=== PATIENT | female | born 1960 | race Caucasian/White ===

== ENCOUNTER 2021-06-07 05:21 | Emergency (ER) | payer OTHER, SELFPAY ==
--- NOTE | ~2021-06-07 | XR_ITS ---
EXAMINATION: XR lumbar spine 2-3V DATE: 06/07/2021 06:20 INDICATION: Low back pain TECHNIQUE: Anteroposterior and lateral views of the lumbar spine, and cone-down lateral view of the l umbosacral junction were obtained. COMPARISON: 05/24/2013 FINDINGS: There is no fracture. The vertebral body heights and alignment are normal. There is moderat e loss of intervertebral disc space height at L4-5 and L5-S1. Small degenerative osteophytes project from the anterior endplates of multiple vertebral bodies. Moderate facet osteoarthritis is present in the lower lumbar spine. A right pelvic calcification has the appearance of a uterine fibroid. IMPRESSION: 1. Moderate lumbar spondylosis without acute findings or significant interval change. Reviewed, dictated and finalized at location A. IMPRESSION: 1. Moderate lumbar spondylosis without acute findings or significant interval barbara sawyer
[2021-06-07 05:26] VITALS: BP 144/77; PULSE 66; RESP 18; TEMP 36.4; O2SAT 97
--- NOTE | 2021-06-07 05:35 | ED.GENADULT ---
HPI - General Adult General Chief complaint: Back Pain/Injury Stated complaint: Back injury at work Time Seen by Provider: 06/07/21 05:31 History of Present Illness HPI narrative: Patient is a 60-year-old female presents the emergency department with chief complaint of low back pain. The patient reports she works at [employer] and was moving some boxes of deli meat that were stacked in leaning fashion by her colleagues. Patient states that as she was attempting to move them the stack of boxes appeared to start to fall and the patient moved and twisted her back as she was trying to avoid the moving pile. Patient reports that the object did not fall but she felt a pulling sensation in her left low back the patient states has had no bowel or bladder dysfunction denies foot drop denies any paresthesias. Related Data Allergies Allergy/AdvReac Type Severity Reaction Status Date / Time No Known Allergies Allergy Unknown Verified 07/23/19 08:06 Review of Systems Review of Systems: A 10 system review of systems was completed on the patient and is negative except for what is stated in the HPI. Nursing and ancillary documentation was reviewed. Exam Narrative: GENERAL: Well-appearing, well-nourished, and in no acute distress. HEAD: Normocephalic, atraumatic. EYES: PERRLA and EOMI. ENT: Nares clear, no rhinorrhea or epistaxis. Mucous membranes moist. NECK: Supple. CHEST: Clear to auscultation. No respiratory distress. HEART: Regular rate and rhythm. No murmur heard. Normal peripheral pulses. ABDOMEN: Soft, nontender, nondistended, normal active bowel sounds. EXTREMITIES: Normal range of motion. No edema. Back: There is tenderness to palpation of the paraspinous muscles of the lumbar region on the left side SKIN: Warm, dry, no rash. NEURO: No focal deficits. Alert and oriented x3. PSYCH: Normal mood and affect. Course Vital Signs Vital signs: Vital Signs Temperature 36.4 C L 06/07/21 05:26 Pulse Rate 66 06/07/21 05:26 Respiratory Rate 18 06/07/21 05:26 Blood Pressure 144/77 H 06/07/21 05:26 Pulse Oximetry 97 06/07/21 05:26 Temperature 36.4 C L 06/07/21 05:26 Pulse Rate 66 06/07/21 05:26 Respiratory Rate 18 06/07/21 05:26 Blood Pressure 144/77 H 06/07/21 05:26 Pulse Oximetry 97 06/07/21 05:26 Medical Decision Making Vital Signs Vital Signs: Vital Signs Temperature 36.4 C L 06/07/21 05:26 Pulse Rate 66 06/07/21 05:26 Respiratory Rate 18 06/07/21 05:26 Blood Pressure 144/77 H 06/07/21 05:26 Pulse Oximetry 97 06/07/21 05:26 Temperature 36.4 C L 06/07/21 05:26 Pulse Rate 66 06/07/21 05:26 Respiratory Rate 18 06/07/21 05:26 Blood Pressure 144/77 H 06/07/21 05:26 Pulse Oximetry 97 06/07/21 05:26 Discharge Plan Discharge Clinical Impression: Strain of lumbar region Qualifiers: Encounter type: initial encounter Qualified Code(s): S39.012A - Strain of muscle, fascia and tendon of lower back, initial encounter Patient Disposition: Home, Self-Care Condition: Stable Instructions: Antibiotic Form, Low Back Strain (ED), Acute Low Back Pain (ED) Prescriptions: New cyclobenzaprine 10 mg tablet 10 mg PO TID PRN (Reason: muscle spasm) Qty: 21 RF: 0 ibuprofen 800 mg tablet 800 mg PO TID PRN (Reason: pain) Qty: 30 RF: 0 Follow-up/Referrals: Karly,Praful Griffiths MD [Primary Care Provider] - Time of Disposition: 06:22
[2021-06-07] MEDS: CYCLOBENZAPRINE HCL 10 MG TABLET PO (05:46)
[2021-06-07] MEDS: IBUPROFEN 400 MG TABLET 800 MG PO (05:47)
[2021-06-07 06:49] VITALS: BP 129/85; PULSE 67; RESP 17; O2SAT 99
== END 2021-06-07 06:52 | disposition home or self-care (01) ==
PROVIDERS: Emergency Provider Emergency Medicine; PCP Internal Medicine
DX: S39.012A Strain of muscle, fascia and tendon of lower back, initial encounter (principal); X50.1XXA Overexertion from prolonged static or awkward postures, initial encounter; Y99.0 Civilian activity done for income or pay
CPT/HCPCS: 72100; 99283; A9270

== ENCOUNTER 2022-11-26 14:34 | Emergency (ER) | payer OTHER, SELFPAY ==
--- NOTE | ~2022-11-26 | XR_ITS ---
EXAMINATION: [id number] DATE: 11/26/2022 15:21 INDICATION: Anterolateral left lower rib pain after pushing van door closed. TECHNIQUE: A frontal inspiratory view of the chest and 3 views of the left ribs were obtained. COMPARISON: None FINDINGS: No rib fractures identified. A few bilateral small calcified pulmonary nodules and calcified bilatera l hilar lymph nodes consistent with old granulomatous disease. No other airspace opacities, pulmonary edema, pleural effusion or pneumothorax. Cardiomediastinal silhouette is normal. Slight 3 component curvature of the thoracic and lumbar spine with moderate spondylosis. Cholecystectomy clips in right upper quadrant. IMPRESSION: 1. No rib fracture or acute cardiopulmonary disease. Reviewed, dictated and finalized at location A. NESE PROFESSOR
[2022-11-26 15:02] VITALS: BP 118/73; PULSE 66; RESP 18; TEMP 36.2; O2SAT 98
--- NOTE | 2022-11-26 15:37 | ED.GENADULT ---
HPI - General Adult General Chief complaint: Unspecified Stated complaint: rt injury Time Seen by Provider: 11/26/22 15:43 Source: patient, RN notes reviewed and old records reviewed Mode of arrival: ambulatory Limitations: no limitations History of Present Illness HPI narrative: 62-year-old female presents to the [facility] with complaints of left lower anterior rib pain after trying to close her van door. patient states that she heard a pop in this concern for a rib fracture. No bruising or swelling noted. Tenderness to palpation to the left lower 2 ribs. Happened just prior to arrival. No treatment prior to arrival Related Data Home Medications Medication Instructions Recorded Confirmed famotidine 20 mg tablet mg 11/26/22 metoprolol succinate 25 mg mg PO 11/26/22 tablet,extended release 24 hr nabumetone 500 mg tablet mg 11/26/22 naltrexone 50 mg tablet mg 11/26/22 norethindrone acetate 5 mg tablet mg 11/26/22 Allergies Allergy/AdvReac Type Severity Reaction Status Date / Time No Known Allergies Allergy Unknown Verified 07/23/19 08:06 Review of Systems Review of Systems: All systems reviewed & are unremarkable except as noted in HPI and below Constitutional: Constitutional: Reports no additional constitutional complaints Eyes: Eyes: Reports no additional eye complaints ENT: Reports system reviewed and no additional complaints, except as documented Cardiovascular: Cardiovascular: Reports no additional cardiovascular complaints, Denies chest pain and Denies dyspnea Respiratory: Respiratory: Reports no additional respiratory complaints, Denies chest congestion, Denies cough and Denies dyspnea Gastrointestinal: Gastrointestinal: Reports no additional gastrointestinal complaints, Denies abdominal pain, Denies nausea and Denies vomiting Musculoskeletal: Musculoskeletal: Reports no additional musculoskeletal complaints Comments: left lower rib pain anterior Integumentary/Breasts: Skin/Breast: Reports system reviewed and no additional complaints, except as docu Neurologic: Reports system reviewed and no additional complaints, except as documented Psychiatric: Psychiatric: Reports no additional psychiatric complaints Allergic/Immunologic: Allergic/Immunologic: Reports no additional allergic/immunologic complaints PMFSH Comments At the time of my signature, I reviewed and agree with the nursing past medical, surgical, social, and family history. There is no relevant family history pertinent to the patient complaint. Exam Const: General: cooperative, healthy appearing, comfortable, no acute distress, well developed, alert and well nourished Nutritional Appearance: well nourished Orientation/consciousness: patient oriented x3 Limitations: no limitations HENMT: Head: normal to inspection Ears: hearing grossly normal bilaterally and external ears normal Face/Nose/Sinus: Normal external nose present, Normal nares present, Normal nasal mucous membranes and turbinates present and normal facial exam Face and sinus: normal facial exam Mouth: Yes Normal oral and palatal mucosa present, Yes lip normal and Yes moist mucous membranes Throat: posterior oropharynx normal and uvula midline Eyes: General: appearance normal, both eyes and all related structures Alignment and Position: alignment normal Periorbital: periorbital findings normal Conjunctivae: conjunctivae normal Pupils: Equal, round and reactive pupils present EOM: EOMs intact bilaterally Neck: Neck: normal visual inspection, full ROM, no lymphadenopathy and no meningeal signs Chest: Chest palpation & inspection: tenderness Chest/axillae images: 1. left lower 2 ribs tender to palpation without erythema, rash, ecchymosis or swelling Resp: Effort & Inspection: normal respiratory effort and able to speak in complete sentences Auscultation: clear to auscultation bilaterally, no crackles, no rales, no rhonchi and no wheezes Cardio: Rat
== END 2022-11-26 15:58 | disposition home or self-care (01) ==
PROVIDERS: Emergency Provider Nurse Practitioner; PCP Physician Assistant
DX: S20.212A Contusion of left front wall of thorax, initial encounter (principal); X50.0XXA Overexertion from strenuous movement or load, initial encounter; K21.9 Gastro-esophageal reflux disease without esophagitis
CPT/HCPCS: 71101; 99213; G0463

== ENCOUNTER 2024-03-14 13:04 | Emergency (ER) | payer OTHER, SELFPAY ==
--- NOTE | ~2024-03-14 | XR_ITS ---
XR foot RT min 3V DATE: 03/14/2024 13:27 INDICATION: Injury one month ago. Continued swelling and pain TECHNIQUE: 4 views COMPARISON: None FINDINGS: There is mild osteoarthritis at the first metatarsophalangeal joint. There is plantar calcaneal enthesopathy. No fracture, dislocation, periosteal reaction or bone destruction is detected. IMPRESSION: No fracture or dislocation Reviewed, dictated and finalized at location B. IMPRESSION: No fracture or dislocation
[2024-03-14 13:05] VITALS: BP 127/85; PULSE 81; RESP 18; TEMP 36.9; O2SAT 97
[2024-03-14 15:00] VITALS: BP 131/78; PULSE 72; RESP 14; O2SAT 100
--- NOTE | 2024-03-14 15:23 | ED.LOWEXIN ---
HPI - Extremity Injury (Lower) General Chief Complaint: Extremity Injury, Lower Stated Complaint: concerned right foot is broken Time Seen by Provider: 03/14/24 14:12 History of Present Illness HPI Narrative: 63-year-old female presents to the emergency room for evaluation of right foot pain. Patient states 2-3 months ago she kicked off the foot of her bed causing pain to her of her right 2nd toe. Patient states that she has had discomfort in the toe since the injury. States recently of the base of the toe developed swelling which is extended to the midfoot. Patient reports pain with ambulation. Has been taking ibuprofen with no relief of symptoms. Related Data Home Medications Medication Instructions Recorded Confirmed famotidine 20 mg tablet mg 11/26/22 metoprolol succinate 25 mg mg PO 11/26/22 tablet,extended release 24 hr nabumetone 500 mg tablet mg 11/26/22 naltrexone 50 mg tablet mg 11/26/22 norethindrone acetate 5 mg tablet mg 11/26/22 Allergies Allergy/AdvReac Type Severity Reaction Status Date / Time No Known Allergies Allergy Unknown Verified 07/23/19 08:06 Review of Systems Review of Systems: ROS unremarkable except for noted in HPI Exam Narrative: GENERAL: Well-appearing, well-nourished, no physical limitations, and in no acute distress. HEAD: Normocephalic, atraumatic. EYES: Conjunctivae normal, PERRLA and EOMI. CHEST: Clear to auscultation. No respiratory distress. No wheezes rales or rhonchi. HEART: Regular rate and rhythm. No murmur heard. Normal peripheral pulses. EXTREMITIES: Right foot: +TTP to MTP joint of 2nd toe with diffuse swelling. No ecchymosis or erythema noted SKIN: Warm, dry, no rash. No noted wounds NEURO: No focal deficits. Alert and oriented x3. MAEW. CN's II-XI intact bilaterally, normal gait PSYCH: Cooperative. Normal mood and affect. Course Vital Signs Vital signs: Vital Signs Temperature 36.9 C 03/14/24 13:05 Pulse Rate 81 03/14/24 13:05 Respiratory Rate 18 03/14/24 13:05 Blood Pressure 127/85 03/14/24 13:05 Pulse Oximetry 97 03/14/24 13:05 Oxygen Delivery Room Air 03/14/24 13:05 Temperature 36.9 C 03/14/24 13:05 Pulse Rate 81 03/14/24 13:05 Respiratory Rate 18 03/14/24 13:05 Blood Pressure 127/85 03/14/24 13:05 Pulse Oximetry 97 03/14/24 13:05 Oxygen Delivery Room Air 03/14/24 13:05 Discharge Plan Discharge Clinical Impression: Gout Patient Disposition: Home, Self-Care Condition: Stable Instructions: Antibiotic Form, Gout (ED) Prescriptions: New indomethacin 50 mg capsule 50 mg PO TID Qty: 18 0RF Rx Instructions: administer with food or milk No Action naltrexone 50 mg tablet famotidine 20 mg tablet norethindrone acetate 5 mg tablet metoprolol succinate 25 mg tablet extended release 24 hr PO nabumetone 500 mg tablet baclofen 10 mg tablet 10 mg PO TID PRN (Reason: muscle pain) Qty: 10 0RF ibuprofen 600 mg tablet 600 mg PO TID PRN (Reason: fever or pain) Qty: 30 0RF Follow-up/Referrals: Adrian,JESSICA Marcus [Primary Care Provider] - Time of Disposition: 15:23
[2024-03-14] MEDS: dexAMETHasone SOD PHOS INJ 10 MG/ML 1 ML VIAL IM (15:37)
[2024-03-14 15:42] VITALS: BP 127/80; PULSE 66; RESP 15; TEMP 36.8; O2SAT 100
== END 2024-03-14 15:43 | disposition home or self-care (01) ==
PROVIDERS: Emergency Provider Nurse Practitioner Family; PCP Physician Assistant
DX: M10.9 Gout, unspecified (principal)
CPT/HCPCS: 73630; 96372; 99283; J1100

== ENCOUNTER 2024-12-09 23:47 | Emergency (ER) | payer OTHER, SELFPAY ==
--- NOTE | ~2024-12-09 | XR_ITS ---
Clinical Indication: Chest pain PA and lateral views of the chest: Comparison: 03/21/2012 Findings: Small calcified right midlung granuloma present. Questionable focal hazy opacity right midl anil. Left lung clear. Cardiomediastinal silhouette is within normal limits. Bones and soft tissues a re unremarkable. Impression: Question of focal hazy opacity right midlung. Focal pneumonitis not excluded. Stable calcified right midlung granuloma. Reviewed, dictated and finalized at location . T PSYCHOLOGIST Impression: Question of focal hazy opacity right midlung. Focal pneumonitis not excluded. Stable calcified right midlung granuloma.
--- OUTSIDE RECORDS SUMMARY | 2024-12-09 23:49 | XMS_ITS | Patient Health Summary ---
Author Organization [facility] Address [address] [place] [address] Care Team Providers Care Reliability Technicians Name Role Phone Praful Brandt MD Primary Care Provider [phone] Praful Brandt MD Unavailable Note from [facility],non-owned Affiliates and Associated Physician Practices is amultiple site organization consisting of ambulatory clinics and hospital sitesin [place], [place], [place] and [place]. This disclosure is being madepursuant to the Care Everywhere program and may not contain all information available regarding this patient. Last updated 18.[facility] Allergies No known active allergies Medications * Be aware that medications may not be up to date on this document. Alwaysverify current medications with the patient. * meloxicam (MOBIC) 7.5 MG tablet(Started 10/20/2020) * metoprolol succinate XL 24hr (TOPROL XL) 25 MG tablet(Started 10/20/2020) * multivitamin daily (ONE A DAY) tablet(Started 10/20/2020) * aspirin EC (ECOTRIN) 81 MG tablet Take 81 mg by mouth once daily Active Problems Problem Noted Date Diagnosed Date Actinic keratosis 11/20/2020 Lentigines 11/20/2020 Family history of malignant melanoma of skin Multiple benign melanocytic nevi of upper extremity, lower extremity, and trunk 11/20/2020 Fibroadenoma, 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 Allergic rhinitis 11/04/2015 BMI 36.0-36.9,adult 11/04/2015 Dyspnea 11/04/2015 Gastroesophageal reflux disease without esophagi tis 11/04/2015 JARVIS (obstructive sleep apnea) 11/04/2015 Palpitations 04/01/2014 Unspecified disorder of circulatory system 04/01 Unspecified fracture of unsp ecified wrist and hand, initial encounter for closed fracture 04/01/2014 Immunizations * INFLUENZA VACCINE(Given 06/20/2020) * Influenza Intradermal(Given 11/04/2015) Social History Tobacco Use Types Packs/Day Years Used Date Smoking Tobacco: Never Smokeless Tobacco: Never Tobacco Cessation:Counseling Given: No Alcohol Use Standard Drinks/Week Comments Never 0 (1 standard drink = 0.6 oz pur e alcohol) Sex and Gender Information Value Date Recorded Sex Assigned at Not on file Gender Identity Not on file Sexual Orientation Not on file Last Filed Vital Signs Vital Sign Reading Time Taken Comments Blood Pressure 124/82 11/04/2015 9:16 AM BACK ROLLER Pulse 66 11/04/2015 9:16 AM BACK ROLLER Temperature 36.7 C (98.1 F) 11/04/2015 9:16 AM BACK ROLLER Respiratory Rate 20 11/04/2015 9:16 AM BACK ROLLER Oxygen Saturation 96% 11/04/2015 9:16 AM BACK ROLLER Inhaled Oxygen Concentration - - Weight 102.1 kg (225 lb) 11/04/2015 9:16 AM BACK ROLLER Height 167.6 cm (5' 6 ) 11/04/2015 9:16 AM BACK ROLLER Body Mass Index 36.32 11/04/2015 9:16 AM BACK ROLLER Procedures * UT DESTROY PREMALIG LESION, 1ST LESION(Performed 11/22/2020) Performed for Actinic keratosis * COMPLETE PFT W/WO BRONCHODILATOR(Performed 11/12/2015) * BLOOD GASES ART - PFT(Performed 11/12/2015) * ECHO COMPLETE(Performed 11/12/2015) Results * UT DESTROY PREMALIG LESION, 1ST LESION (11/22/2020 4:49 PM BACK ROLLER) Narrative Garrett Bautista MD - 11/22/2020 4:49 PM BACK ROLLER Garrett Bautista MD 11/22/2020 4:49 PM 1 lesion cryo Garrett Bautista MD PROCEDURE/MINOR SURG ICAL ORDERABLES * COMPLETE PFT W/WO BRONCHODILATOR (11/12/2015 11:41 AM BACK ROLLER) Impressions [facility] RAD[facility]OLOG[facility] - 11/12/2015 11:41 AM BACK ROLLER [facility] DEPARTMENT OF PULMONARY, CRITICAL CARE, AND SLEEP MEDICINE PULMONARY FUNCTION TESTS Bev Stuart 11/17/2015 INTERPRETATION SPIROMETRY: Forced vital capacity is normal. FEV1 is normal. FEV1/FVC ratio is normal. The inspection of the patient's flow-volume loops shows flattening configuration of the inspiratory and expiratory limbs. LUNG VOLUMES: Lung volumes by body plethysmography are :Normal DLCO: Diffusing capacity Adjusted for Hb and COHb is elevated AIRWAY RESISTANCE: The airway resistance and the specific conductance are normal. ARTERIAL BLOOD GAS ANALYSIS: ABG drawn on RA revealed normal oxygenation and normal acid-base balance. IMPRESSION: 1. Normal spirometry 2.Elevated adjusted DLCO 3. No comparison study is available. Dr.Venkatkiran Tamiko MD Pulmonary / Critical Care Fellow Division of Pulmonary, Critical Care, & Sleep Medicine [facility] I have reviewed this study and agree with the interpretation by Dr. Morrison. Dylan Fuentes M.D. Physical Ther of Internal Medicine Division of Pulmonary, Critical Care and Sleep Medicine [facility] Narrative Procedure Note Provider, MD Kendall - 03/31/2018 IMPRESSION [facility] DEPARTMENT OF PULMONARY, CRITICAL CARE, AND SLEEP MEDICINE PULMONARY FUNCTION TESTS [facility] 11/17/2015 INTERPRETATION SPIROMETRY: Forced vital capacity is normal. FEV1 is normal. FEV1/FVC ratio is normal. The inspection of the patient's flow-volume loops shows flattening configuration of the inspiratory and expiratory limbs. LUNG VOLUMES: Lung volumes by body plethysmography are :Normal DLCO: Diffusing capacity Adjusted for Hb and COHb is elevated AIRWAY RESISTANCE: The airway resistance and the specific conductance are normal. ARTERIAL BLOOD GAS ANALYSIS: ABG drawn on RA revealed normal oxygenation and normal acid-base balance. IMPRESSION: 1. Normal spirometry 2.Elevated adjusted DLCO 3. No comparison study is available. Dr.Venkatkiran Tamiko MD Pulmonary / Critical Care Fellow Division of Pulmonary, Critical Care, & Sleep Medicine [facility] I have reviewed this study and agree with the interpretation by Dr. Morrison. Dylan Fuentes M.D. Physical Ther of Internal Medicine Division of Pulmonary, Critical Care and Sleep Medicine [employer] Quan Camarena MD RESPIRATORY THE RAPY ORDERABLES [facility] * (ABNORMAL) BLOOD GASES ART - PFT (11/12/2015 10:24 AM BACK ROLLER) pH Arterial 7.41 7.35 - 7.45 [facility] pCO2 Arterial 37 35 - 45 mmHg [facility] pO2 Arterial 83 77 - 101 mmHg [facility] HCO3 Arterial 23.0 22.0 - 26.0 mmol/L [facility] TCO2 Arterial 24.1(L) 25.0 - 29.0 mmol/L [facility] Base Excess Arterial -0.8 -2.0 - 2.0 mmol/L [facility] Hemoglobin Arterial 13.2 12.0 - 15.5 g/dL [facility] Oxyhemoglobin Arterial 96.4 95.0 - 100.0 % [facility] Carboxyhemoglobin 1.5 0.0 - 3.0 % [facility] Methemoglobin 0.0 0.0 - 2.0 % [facility] FI O2 Arterial 21.0 % [facility] Blood specimen (specimen) ARTERY SPECIMEN / Unknown 11/12/2015 10:24 AM BACK ROLLER 11/12/2015 10:52 AM BACK ROLLER Narrative [facility] - 11/12/2015 10:54 AM BACK ROLLER Room Air (21%)->Yes FiO2->21 Quan Camarena MD LAB - BLOOD GAS ES ORDERABLES [address] [phone] * ECHO W DOPPLER AND COLOR FLOW (11/12/2015 12:00 AM BACK ROLLER) Anatomical Region Laterality Modality Other 11/12/2015 Quan Camarena MD ECHOCARDIOGRAPH Y RADIANT Care Teams Reliability Technicians Relationship Specialty Start Date End Date Praful Brandt MD [address] [place] [id number] PCP - General 07/25/19 Praful Brandt MD [address] [place] [address] Internal Medicine 07/25/19
--- OUTSIDE RECORDS SUMMARY | 2024-12-09 23:49 | XMS_ITS | Clinical Summary ---
Author Organization [facility] Address [address] [place] [address] Care Team Providers Care Cat Swamper Name Role Phone Praful Brandt MD Primary Care Provider [phone] Allergies No known active allergies Medications naldemedine tosylate (NALDEMEDINE ORAL) Take 5 mg by mouth daily . Active metoprolol succinate (TOPROL XL) 25 mg Extended Release 24 hour tablet 03/16/2019 Active aspirin (ECOTRIN EC) 81 mg Tablet, Delayed Release (E.C.) Take 81 mg by mouth daily. Active Active Problems Problem Noted Date Diagnosed Date Fibroadenoma, 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 Resolved Problems Problem Noted Date Diagnosed Date Resolved Date Postoperative infection of breast incision 07/27/2019 08/28/2019 Lump in lower outer quadrant of right breast 9 07/27/2019 Abnormal mammogram of right breast 05/31/2019 07/27/2019 Sign and symptom in breast 05/31/2019 1 Abnormal ultrasound of breast 05/31/2019 07/27/2019 Social History Tobacco Use Types Packs/Day Years Used Date Smoking Tobacco: Never Smokeless Tobacco: Never Alcohol Use Standard Drinks/Week Comments Not Currently 0 (1 standard drink = 0.6 oz pur e alcohol) Comments No Sex and Gender Information Value Date Recorded Sex Assigned at Not on file Legal Sex Female 11:41 AM CDT Gender Identity Not on file Sexual Orientation Not on file Last Filed Vital Signs Vital Sign Reading Time Taken Comments Blood Pressure 120/86 08/28/2019 2:57 PM CREDIT REPORT CHECKER Pulse 64 08/28/2019 2:57 PM CREDIT REPORT CHECKER Temperature 36.9 C (98.5 F) 08/28/2019 2:57 PM CREDIT REPORT CHECKER Respiratory Rate - - Oxygen Saturation 98% 08/28/2019 2:57 PM CREDIT REPORT CHECKER Inhaled Oxygen Concentration - - Weight 89.6 kg (197 lb 8 oz) 08/28/2019 2:57 PM CREDIT REPORT CHECKER Height 167.6 cm (5' 6 ) 08/28/2019 2:57 PM CREDIT REPORT CHECKER Body Mass Index 31.88 08/28/2019 2:57 PM CREDIT REPORT CHECKER Plan of Treatment Health Maintenance Due Date Last Done Comments DTAP/TDAP/TD VACCINES (1 - Tdap) 1980 CERVICAL CANCER SCREENING 1991 BREAST CANCER SCREENING 2001 COLORECTAL SCREENING 2006 Colorectal Cancer Screening 2006 FIT-DNA Q 3 years 2006 FIT/FOBT Q 1 year 2006 Flex Sig/CT Colonography Q 5 years 2006 ZOSTER VACCINE (1 of 2) 2011 INFLUENZA VACCINE (#1) 2024 RSV VACCINE (60+ or ) (1 - 1-dose 75+ series) 2036 Insurance [employer] PPO Care Teams Cat Swamper Relationship Specialty Start Date End Date Praful Brandt MD [address] [place] [phone] PCP - General Internal Medicine 05/31/19
--- OUTSIDE RECORDS SUMMARY | 2024-12-09 23:49 | XMS_ITS | Continuity of Care Document ---
Author Name Alejandra Castellanos Address [address] [facility] [place] [address] Organization Unknown Address [address] [place], [place] [id number] [place] [address] Medications No known medications Problems No known problems
--- OUTSIDE RECORDS SUMMARY | 2024-12-09 23:49 | XMS_ITS | Continuity of Care Document ---
Author Name Alejandra Castellanos Address [address] [facility] [place] [address] Organization Unknown Address [address] [place], [place] [id number] [place] [address] Medications No known medications Problems No known problems
--- OUTSIDE RECORDS SUMMARY | 2024-12-09 23:49 | XMS_ITS | Data Portability ---
Author Organization [place] [facility], Main Office Address [address] [place] [address] Care Team Providers Care Delinquency Prevention Social Worker Name Role Phone INNA KAHN Primary Care Provider [phone] INNA KAHN Referring Provider SVETA DU Primary Care Provider [phone] Assessment Encounter Date Assessment Date Assessment LastModified by Organization Details LastModified Time 01/27/2023 01/27/2023 Assessment: Mild OSAHS, AHI = 1 Plan: The following were reviewed and explained to the patient: primary care/referral note [facility] home sleep study 12/31/22 AHI = 1 General information on sleep disordered breathing and evaluation of sleep disordered breathing were covered. Reassurance that patient does not need treatment for JARVIS. We discussed with the patient the impact of weight on: Sleep disordered breathing Hyperlipidemia IGT OLEGARIO Low back pain Educated the patient on sleep hygiene measures. Relaxing rituals to rest easy, understanding foods with positive and negative impact on sleep, creating a peaceful sleep environment, timing of exercise, using herbal sleep aids, and practicing sleep-friendly meditation were covered. To determine how much sleep is needed, the patient will assess where (s)he falls on the spectrum, examine what lifestyle factors such as work schedules and stress are affecting the quality and quantity of sleep. In general, adults need 7-9 hours of sleep. Educated the patient regarding foods that promote sleep. These include but are not limited to cherries, bananas, toast, oatmeal, and warm milk. Educated the patient regarding foods and drinks to avoid before bedtime. These include but are not limited to aged cheese, chocolate, spicy foods, tomato-based sauces, soy, ginseng tea and processed meat. Advocated influenza vaccination annually and pneumonia vaccination BETSY. Advocated weight loss through diet and exercise. Patient's ideal body weight according to height and gender is up to 140 lbs. Encouraged patient to adjust caloric intake to maintain/achieve ideal body weight, emphasizing on fruits, vegetables, whole grains, and fat-free or low-fat products. These include lean meats, poultry, fish, beans, eggs, and nuts and foods that are low in saturated fats, trans-fats, cholesterol, salt (sodium), and glycemic index. Stressed the importance of regular exercise up to the patient's capacity limits. In this case, we recommend 20 min daily walking, 2 days a week of resistance training. Patient to monitor BP daily and bring records to PCP for further management. Follow-up: as needed, may need re-evaluation in one year, if desired [email or web address] Not available 01/27/2023 11:53:26 Plan of Treatment Reminders Order Date Submit Date Provider Last Modified By Organization Details Last Modified Time Details Appointments None record ed. Lab None record ed. Referral None record ed. Procedures None record ed. Surgeries None record ed. Imaging None record ed. Medication Orders None record ed. Patient TargetsNo targets recorded. Patient InstructionsNo instructions recorded. Reason for Referral None Reported. Results Created Date Observation Date Name Description Value Unit Range Abnormal Flag Note LastModifiedBy Organization Detail LastModifiedTime 01/05/2012/31/2022 home sleep testi ng (PROC ) No observ ation record ed. [facility] [address] [place], [address], 01/04/2023 10:26:54 Result Notes None recorded. 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 Procedures Surgical History Date Name Laterality Status Provider Name and Address Organization Details Recorded Time procedure on wrist completed Not Available [facility] 12/22/2022 12:44:54 Lumpectomy completed Not Available [facility] 12/22/2022 12:44:54 Gallbladder Surgery completed Not Available [facility] 12/22/2022 12:44:54 Rotator cuff surgery completed Not Available [facility] 12/22/2022 12:44:54 Tonsillectomy completed Not Available [facility] 12/22/2022 12:44:54 Knee arthroscopy/surger y completed Not Available [facility] 12/22/2022 12:44:54 Imaging Results Imaging Date Name Status LastModified by Organiz ation Details LastModified Time 12/31/2022 home sleep testing (PROC) completed [facility] [address] [place], [address], 01/04/2023 10:26:54 Procedure Notes None recorded. Medical Equipment None Reported. Medications Name Sig Start Date Stop Date Status Note LastModified by Organization Details LastModified Time bupropion HCl SR 150 mg tablet,12 hr sustained-r elease TAKE ONE TABLET BY MOUTH TWICE DAILY NEEDED active Not Available Not Available No t Available hydrocodone 5 mg-acetamin ophen 325 mg tablet TK 1-2 TS PO Q 6 H PRF PAIN 09/13 completed Not Available Not Available Not Available ondansetron HCl 8 mg tablet TAKE ONE TABLET BY MOUTH TWICE DAILY NEEDED 09/13 completed Not Available Not Available Not Available naltrexone 50 mg tablet TAKE 1/2 TABLET BY MOUTH TWICE DAILY DIRECTED, needs appointme nt FOR further refills active Not Available Not Available No t Available prednisone 20 mg tablet 09/13 completed Not Available Not Available Not Available famotidine 20 mg tablet TAKE TWO TABLETS BY MOUTH EVERY DAY FOR STOMACH active Not Available Not Available No t Available metoclopram kavon 5 mg tablet 09/13 completed Not Available Not Available Not Available baclofen 10 mg tablet TAKE 1 TABLET BY MOUTH THREE TIMES DAILY NEEDED FOR MUSCLE PAIN active Not Available Not Available No t Available benzonatate 100 mg capsule 09/13 completed Not Available Not Available Not Available hydrocodone 7.5 mg-acetamin ophen 325 mg tablet TK 1 T PO Q 6 H PRN P 09/13 completed Not Available Not Available Not Available diclofenac sodium 75 mg tablet,clyde yed release 09/13 completed Not Available Not Available Not Available norethindro ne acetate 5 mg tablet TAKE ONE TABLET BY MOUTH EVERY DAY active Not Available Not Available No t Available metoprolol succinate ER 25 mg tablet,exte nded release 24 hr TAKE ONE TABLET BY MOUTH EVERY DAY FOR BLOOD PRESSURE active Not Available Not Available No t Available naproxen 500 mg tablet 09/13 completed Not Available Not Available Not Available nabumetone 500 mg tablet TAKE ONE TABLET BY MOUTH TWICE DAILY WITH MEALS active Not Available Not Available No t Available Vitamin C 09/13 completed Not Available Not Available Not Available biotin 09/13 completed Not Available Not Available Not Available apple cider vinegar 09/13 completed Not Available Not Available Not Available turmeric root extract 500 mg capsule Take by oral route. 01/03 completed Not Available Not Available Not Available norethindro ne 5 mg tablet Take by oral route. 09/13 completed Not Available Not Available Not Available Tab-A-Pritesh 400 mcg tablet TAKE 1 TABLET BY MOUTH EVERY DAY FOR VITAMIN DEFICIENC Y 01/03 completed Not Available Not Available Not Available aspirin 81 mg capsule Take 1 capsule every day by oral route. 2021 active Not Available Not Available Not Avai lable Vitals Date Recorded Body mass index (BMI) Heart rate Body height Oxygen saturation Oxygen saturation in Arterial blood by Pulse oximetry Heart rate Respiratory rate Body temperature Body weight Systolic blood pressure Diastolic blood pressure Provider Name and Address Organization Details Last Updated DateTime 3 37.6 kg/m2 59 /min 167.64 cm 98 % 98 % 59 /min 15 /min 97.4 [degF] 779824. 02 g 106 mm[Hg] 72 mm[Hg] Not Available [facility] 3 12:45:10 Date Recorded Body height Body mass index (BMI) Body weight Body temperature Heart rate Oxygen saturation Oxygen saturation in Arterial blood by Pulse oximetry Oxygen saturation Oxygen saturation in Arterial blood by Pulse oximetry Oxygen saturation Oxygen saturation in Arterial blood by Pulse oximetry Heart rate Heart rate Systolic blood pressure Diastolic blood pressure Provider Name and Address Organization Details Last Updated DateTime 3 167.64 cm 36.5 kg/m2 921409. 88 g 98.2 [degF] 44 /min 98 % 98 % 97 % 97 % 95 % 95 % 44 /min 68 /min 106 mm[Hg] 66 mm[Hg] Simi Abraham MA [employer] [facility] 3 11:37:25 Date Recorded Respiratory rate Heart rate Provider N claudia and Address Organization Details Last Updated DateTime 01/27/2023 15 /min 59 /min Will Leach MD [address], [facility] [address], [place], [address], [place] [facility] [employer] [email or web address] 01/27/2023 11:42:08 Social History Question Answer Notes LastModified by Organizat ion Details LastModified Time Tobacco Smoking Status Never Smoker Not Available [facility] 12/22/2022 12:44:51 Do You Have An Advance Directive? No [id number] Information not available 12/22/2022 What Is Your Level Of Alcohol Consumption? None [id number] Information not available 12/22/2022 What Is Your Level Of Caffeine Consumption? Heavy [id number] Information not available 12/22/2022 In The 14 Days Before Symptom Onset, Have You Had Close Contact With A Laboratory-confir med COVID-19 While That Case Was Ill? No [id number] Information not available 12/22/2022 In The 14 Days Before Symptom Onset, Have You Had Close Contact With A Person Who Is Under Investigation For COVID-19 While That Person Was Ill? No [id number] Information not available 12/22/2022 What Type Of Diet Are You Following? REGULAR [id number] Information not available 12/22/2022 Do You Have A Humidifier? No [id number] Information not available 12/22/2022 Where Do You Live? [place] [id number] Information not available 12/22/2022 Do You Have A Medical Power Of Social Work Lecturer? No [id number] Information not available 12/22/2022 Do You Have Moisture Problems In Your Home? No [id number] Information not available 12/22/2022 What Was The Date Of Your Most Recent Tobacco Screening? 01/27/2023 [email or web address] Information not available 01/27/2023 Do You Have Any Pets? Yes [id number] Information not available 12/22/2022 Do You Have Smoke And Carbon Monoxide Detectors In Your Home? Yes [id number] Information not available 12/22/2022 Are You Passively Exposed To Smoke? No MIGRATION.[id number] Information not available 12/22/2022 Do You Feel Stressed (tense, Restless, Nervous, Or Anxious, Or Unable To Sleep At Night)? [id number] [id number].[id number] Information not available 12/22/2022 Do You Use Any Illicit Or Recreational Drugs? No [id number].[id number] Information not available 12/22/2022 Do You Use Sunscreen Routinely? No MIGRATION.[id number] Information not available 12/22/2022 Has Tobacco Cessation Counseling Been Provided? No MIGRATION.[id number] Information not available 12/22/2022 Have You Recently Traveled Abroad? No MIGRATION.[id number] [id number] Information not available 12/22/2022 Do You Have Any Dietary Restrictions? No MIGRATION.10602 [id number] Information not available 12/22/2022 Do You Or Have You Ever Used Any Other Forms Of Tobacco Or Nicotine? No [id number].[id number] Information not available 12/22/2022 Sex: Unknown Functional Status Question Answer Note LastModified by Organizat ion Details LastModified Time What is your exercise level? None [id number] Information not available 12/22/2022 Mental Status None recorded. Family History Relationship Description Onset Age of this Age Resolved Age Notes LastModified by Organization Details LastModified Time Mother Diabetes mellitus [id number] Not available 12/22/2022 12:44:55 Mother Malignant melanoma [id number] Not available 12/22/2022 12:44:55 Father Diverticulit is [id number] Not available 12/22/2022 12:44:55 Medical History No medical history recorded. Gynecological HistoryNo gynecological history recorded. Obstetrics History GPAL:G 0 P 0 0 0 0 Immunizations Vaccine Type Date Status Note Provider Nam e and Address Organization Details Recorded Time COVID-19, mRNA, LNP-S, bivalent, PF, 50 mcg/0.5 mL or 25mcg/0.25 mL dose 11/05/2021 completed Not Available [facility] 3 12:47:06 COVID-19, mRNA, LNP-S, bivalent, PF, 50 mcg/0.5 mL or 25mcg/0.25 mL dose 04/07/2021 completed Not Available [facility] 3 12:47:06 COVID-19, mRNA, LNP-S, bivalent, PF, 50 mcg/0.5 mL or 25mcg/0.25 mL dose 03/06/2021 completed Not Available [facility] 3 12:47:06 Past Encounters Encounter ID Performer Location Encounter Start Date Encounter Closed Date Diagnosis/Indication Diagnosis SNOMED-CT Code Diagnosis ICD10 Code Diagnosis Note [id number] [facility] [place] [id number] 09/13/2022 00:00:00 09/13/2022 11:00:56 [id number] Will Leach MD [facility] [place] [id number] 0 01/27/2023 11:25:36 03/22/2023 16:25:38 Health Concerns Section Related Observation LastModified by Organization Detai ls LastModified Time None Recorded Concern Status LastModified by Organization Details LastModified Time None Recorded Advance Directives Directive N: Payers Encounter Date Sequence Insurance Name Policy Number Policy Betts Covered Member ID Betts Member ID Guarantor Name 01/27/2023 1 [facility] (MEDICAID HMO) [id number] Bev Phillips [id number] Bev Phillips Notes Date Note Type Note Provider Name and Address Organization Details Recorded Time 01/27/2023 text/html Primary care/Ref erring provider: Inna Kahn PA-C During the [facility] home sleep study on 12/31/22, AHI = 1.At home, the patient sleeps from 8 pm to 4 am and wakes up with an alarm.Snoring: moderate, since .Snorting: noChoking: noCoughing: noGasping: noGagging: noSighing: yesWitnessed apnea: yesTwitching or jerking of leg(s), arm(s), body, head: yesTeeth grinding: yesTeeth clenching: yesSleeptalking: noSleepwalking: noSleep crying: noBedwetting: noTongue/lip/gum/cheek biting: noSleeping with open mouth: yesSleep paralysis: noHypnagogic hallucinations: noHypnopompic hallucinations: noVivid dreams: yesDifficulty with sleep onset: noDifficulty with sleep maintenance: yesSleep interruptions: dreamsPatient wakes up with: fatigue, xerostomia, headaches, dexterity impairmentDaytime cataplexy: noMorning hypersomnolence: yesAfternoon hypersomnolence: yesCaffeine sources in diet: coffee 10 cups per day, tea 3 cups per day, soda 2.5 bottles per day, chocolate 1/2 candy bar per dayAssociated medical and psychiatric conditions:Congestive heart failure: noCoronary artery disease: noMyocardial infarction: noHypertension: noStroke: noBronchial asthma: noChronic obstructive pulmonary disease: noDepression: noBipolar disorder: noAnxiety: noPanic disorder: noPosttraumatic stress disorder: noAttention deficit and hyperactivity disorder: noObsessive Compulsive disorder: noSchizophrenia: noSchizoaffective disorder: noPersonality disorder: noChronic analgesic use: noChronic sedative/hypnotic use: noEPWORTH SLEEPINESS SCALE (ESS)CHANCE OF DOZING SCORE0 = would never doze1 = slight chance of dozing2 = moderate chance of dozing3 = high chance of dozingSITUATION AND CHANCE OF DOZINGSitting and reading - 0Watching television - 0Sitting inactive in a public place (e.g. a theater or meeting) - 0As a passenger in a car for an hour without a break - 0Lying down to rest in the afternoon when circumstances permit - 2Sitting and talking to someone - 0Sitting quietly after lunch without alcohol - 0In a car, while stopped for a few minutes in the traffic - 0TOTAL SCORE 2Subjectively, patient has a slight chance of dozing. Will Leach MD [address] [place] [address], [facility] [address], [place], [address], [facility] 01/27/2023 11:53:36 OBGyn Episode No OBEpisode recorded.
--- OUTSIDE RECORDS SUMMARY | 2024-12-09 23:49 | XMS_ITS | Clinical Summary ---
Author Organization [facility] Address [address] [place] [address] Care Team Providers Care Manager Ems Name Role Phone Praful Brandt MD Primary Care Provider [phone] Praful Brandt MD Unavailable Source Comments [facility],non-owned Affiliates and Associated Physician Practices is amultiple site organization consisting of ambulatory clinics and hospital sitesin [place], [place], [place] and [place]. This disclosure is being madepursuant to the Care Everywhere program and may not contain all information available regarding this patient. Last updated 18.[facility] Allergies No known active allergies Medications * Be aware that medications may not be up to date on this document. Alwaysverify current medications with the patient. Medication Sig Dispensed Refills Start Date End Date Status meloxicam (MOBIC) 7.5 MG tablet 10/20/2020 Active metoprolol succinate XL 24hr (TOPROL XL) 25 MG tablet 10/20/2020 Active multivitamin daily (ONE A DAY) tablet 10/20/2020 Active aspirin EC (ECOTRIN) 81 MG tablet Take 81 mg by mouth once daily Active Active Problems Problem Noted Date Diagnosed Date Actinic keratosis 11/20/2020 Assessment & Plan (11/20/2020 2:38 PM [employer]GE [employer]): - Premalignant potential discussed - Cryotherapy performed today x1 lesion (see procedure note) - Wound care reviewed, post-cryo handout given - Sun protection reviewed Lentigines 11/20/2020 Assessment & Plan (11/20/2020 2:38 PM BRIDGE IR[employer]WORKER): - Benign, patient reassured - Skin cancer, sun protection, and photoaging discussed - Sunscreen handout provided Family history of malignant melanoma of skin Assessment & Plan (11/20/2020 2:38 PM BRIDGE IRONWORKER): - Educated patient about increased risk for developing melanoma - Counseled on importance of daily sun protection - Reviewed ABCDEs of melanoma - Annual FBSE recommended Multiple benign melanocytic nevi of upper extremity, lower extremity, and trunk 11/20/2020 Assessment & Plan (11/20/2020 2:38 PM BRIDGE IR[employer]WORKER): - No atypical or concerning moles on exam today - Reviewed ABCDEs of melanoma - Sun protection reviewed, handout provided - Annual FBSE recommended Fibroadenoma, 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 Allergic rhinitis 11/04/2015 Overview (11/20/2020): Overview: ICD-10 update 2015 BMI 36.0-36.9,adult 11/04/2015 Dyspnea 11/04/2015 Gastroesophageal reflux disease without esophagi tis 11/04/2015 JARVIS (obstructive sleep apnea) 11/04/2015 Palpitations 04/01/2014 Unspecified disorder of circulatory system 04/01 Unspecified fracture of unsp ecified wrist and hand, initial encounter for closed fracture 04/01/2014 Immunizations Name Administration Dates Next Due INFLUENZA VACCINE 06/20/2020 Influenza Intradermal 11/04/2015 Family History Medical History Relation Name Comments None Known Brother None Known Father None Known Maternal Aunt None Known Maternal Grandfather None Known Maternal Grandmother None Known Maternal Uncle Cancer - Skin, Non Melanoma Mother None Known Other None Known Paternal Aunt None Known Paternal Grandfather None Known Paternal Grandmother None Known Paternal Uncle None Known Sister Asthma Neg Hx CVA Neg Hx Cancer - Breast Neg Hx Cancer - Other Neg Hx Cancer - Skin, Melanoma Neg Hx Eczema Neg Hx Hemophilia Neg Hx Psoriasis Neg Hx Relation Name Status Comments Brother Father Maternal Aunt Maternal Grandfather Maternal Grandmother Maternal Uncle Mother Other Paternal Aunt Paternal Grandfather Paternal Grandmother Paternal Uncle Sister Social History Tobacco Use Types Packs/Day Years [...] Comments Blood Pressure 124/82 11/04/2015 9:16 AM [facility]GE [employer] Pulse 66 11/04/2015 9:16 AM [employer] Temperature 36.7 C (98.1 F) 11/04/2015 9:16 AM [employer] Respiratory Rate 20 11/04/2015 9:16 AM [employer] Oxygen Saturation 96% 11/04/2015 9:16 AM [employer] Inhaled Oxygen Concentration - - Weight 102.1 kg (225 lb) 11/04/2015 9:16 AM [employer] Height 167.6 cm (5' 6 ) 11/04/2015 9:16 AM [employer] Body Mass Index 36.32 11/04/2015 9:16 AM BR[employer]GE IR[employer] Plan of Treatment Health Maintenance Due Date Last Done Comments COLOGUARD (AGES 45-75) - COL ON CA SCREENING 1961 COLON MONITORING 1961 COLONOSCOPY - COLON CA SCREENING 1961 CT COLONOGRAPHY - COLON CA SCREENING 1961 Colorectal Cancer Screening 1961 FIT - COLON CA SCREENING 1961 FLEX SIG - COLON CA SCREENING 1961 LIPID TESTING 1961 MAMMOGRAM 1961 PAP SMEAR 1961 HIV SCREENING 1976 HEPATITIS C SCREENING 07/21/1979 DTAP/TDAP/TD VACCINES (1 - Tdap) 1980 PNEUMOCOCCAL VACCINE 50+ (1 of 1 - PCV) 2011 ZOSTER VACCINE (1 of 2) 2011 COVID-19 VACCINE (1 - 2023-2 5 season) 2024 INFLUENZA VACCINE (#1) 2024 0, 11/04/2015 DEPRESSION SCREENING 10/24/2024 Respiratory Syncytial Virus (RSV) Vaccine Pt: or over 60 yrs (1 - 1-dose 75+ series) 2036 HEPATITIS B VACCINE Aged Out No longe r eligible based on patient's age to complete this topic HIB VACCINE Aged Out No longer eligi ble based on patient's age to complete this topic HPV VACCINE Aged Out No longer eligi ble based on patient's age to complete this topic MENINGOCOCCAL (Group B) VACCINE Aged Out No longer eligible b ased on patient's age to complete this topic MENINGOCOCCAL VACCINE Aged Out No rhoda lisa eligible based on patient's age to complete this topic PNEUMOCOCCAL VACCINE Aged Out No long er eligible based on patient's age to complete this topic Care Teams Manager Ems Relationship Specialty Start Date End Date Praful Brandt MD [address] [place] [address] PCP - General 07/25/19 Praful Brandt MD [address] [place] [address] Internal Medicine 07/25/19
--- OUTSIDE RECORDS SUMMARY | 2024-12-09 23:50 | XMS_ITS | Referral Summary ---
Author Organization [facility] Address [address] [place] [address] Care Team Providers Care Mixed Signal Design Engineer Name Role Phone Praful Brandt MD Primary Care Provider [phone] Praful Brandt MD Unavailable Source Comments [facility],non-owned Affiliates and Associated Physician Practices is amultiple site organization consisting of ambulatory clinics and hospital sitesin [place], [place], [place] and [place]. This disclosure is being madepursuant to the Care Everywhere program and may not contain all information available regarding this patient. Last updated 18.[facility] Allergies No known active allergies Medications * [...] 11/20/2020 Assessment & Plan (11/20/2020 2:38 PM KITCHEN PORTER): - Premalignant potential discussed - Cryotherapy performed today x1 lesion (see procedure note) - Wound care reviewed, post-cryo handout given - Sun protection reviewed Lentigines 11/20/2020 Assessment & Plan (11/20/2020 2:38 PM KITCHEN PORTER): - Benign, patient reassured - Skin cancer, sun protection, and photoaging discussed - Sunscreen handout provided Family history of malignant melanoma of skin Assessment & Plan (11/20/2020 2:38 PM KITCHEN PORTER): - Educated patient about increased risk for developing melanoma - Counseled on importance of daily sun protection - Reviewed ABCDEs of melanoma - Annual FBSE recommended Multiple benign melanocytic nevi of upper extremity, lower extremity, and trunk 11/20/2020 Assessment & Plan (11/20/2020 2:38 PM KITCHEN PORTER): - No atypical or concerning moles on [...] Due INFLUENZA VACCINE 06/20/2020 Influenza Intradermal 11/04/2015 Social History Tobacco Use Types Packs/Day Years [...] Comments Blood Pressure 124/82 11/04/2015 9:16 AM KITCHEN PORTER Pulse 66 11/04/2015 9:16 AM KITCHEN PORTER Temperature 36.7 C (98.1 F) 11/04/2015 9:16 AM KITCHEN PORTER Respiratory Rate 20 11/04/2015 9:16 AM KITCHEN PORTER Oxygen Saturation 96% 11/04/2015 9:16 AM KITCHEN PORTER Inhaled Oxygen Concentration - - Weight 102.1 kg (225 lb) 11/04/2015 9:16 AM KITCHEN PORTER Height 167.6 cm (5' 6 ) 11/04/2015 9:16 AM KITCHEN PORTER Body Mass Index 36.32 11/04/2015 9:16 AM KITCHEN PORTER Plan of Treatment Not on file Care Teams Mixed Signal Design Engineer Relationship Specialty Start Date End Date Praful Brandt MD [address] [place] [phone] PCP - General 07/25/19 Praful Brandt MD [address] [place] [phone] Internal Medicine 07/25/19
--- NOTE | 2024-12-09 23:54 | ECG_ITS ---
Test Date: 2024-12-09 23:57:55 Measurements Intervals Converse Rate: 65 P: 42 NV: 168 QRS: -57 QRSD: 106 T: 18 QT: 372 QTc: 387 Interpretive Statements SINUS RHYTHM LEFT ANTERIOR FASCICULAR BLOCK POOR R WAVE PROGRESSION, CONSIDER ANTERIOR INFARCT BASELINE ARTIFACT- I, II, III, AVR, AVL, AVF, V3-V5 ABNORMAL ECG No previous ECG available for comparison Electronically Signed On 12-10-2024 06:58:48 CREDIT COLLECTIONS SPECIALIST by Don Thomas D.O.
[2024-12-10 00:03] VITALS: BP 129/99; PULSE 80; RESP 17; TEMP 36.4; O2SAT 98
[2024-12-10 00:25] LABS: Alanine Aminotransferase 25 U/L (6-35); Albumin Level 4.3 g/dL (3.5-5.1); Alkaline Phosphatase 100 U/L (38-126); Anion Gap 11 mmol/L (4-12); Aspartate Amino Transferase 27 U/L (14-36); Bilirubin,Total 0.5 mg/dL (0.2-1.3); Blood Urea Nitrogen 8 mg/dL (7-17); Calcium 9.5 mg/dL (8.4-10.2); Carbon Dioxide 24 mmol/L (22-30); Chloride 100 mmol/L (98-107); Estimated Glomerular Filt Rate > 60; Glucose 115 mg/dL (65-110); Lipase 104 U/L (23-300); Potassium 3.9 mmol/L (3.4-5.0); Sodium 135 mmol/L (137-145)
[2024-12-10 00:26] LABS: INR 0.9; Prothrombin Time 12.1 Seconds (11.1-14.7)
[2024-12-10 00:27] LABS: Partial Thromboplastin Time 25.6 Seconds (22.3-36.8)
[2024-12-10 00:36] LABS: Troponin I < 0.012 ng/mL (0.000-0.034)
--- NOTE | 2024-12-10 03:59 | PC.NURSE ---
Pt name was first called out at 0219 to be taken back to be seen by provider. Pt did not respond to call out. Pt name was called out for a second time at 0358. Pt did not respond to call again. Pt left without being seen by provider.
--- OUTSIDE RECORDS SUMMARY | 2024-12-10 04:10 | XMS_ITS | Clinical Summary ---
Author Organization [facility] Address [address] [place] [address] Care Team Providers Care Classified Advertising Clerk Name Role Phone Praful Brandt MD Primary Care Provider [phone] Allergies No known active allergies Medications naldemedine [...] Comments Blood Pressure 120/86 08/28/2019 2:57 PM LEGAL SERVICES PROFESSIONAL Pulse 64 08/28/2019 2:57 PM LEGAL SERVICES PROFESSIONAL Temperature 36.9 C (98.5 F) 08/28/2019 2:57 PM LEGAL SERVICES PROFESSIONAL Respiratory Rate - - Oxygen Saturation 98% 08/28/2019 2:57 PM LEGAL SERVICES PROFESSIONAL Inhaled Oxygen Concentration - - Weight 89.6 kg (197 lb 8 oz) 08/28/2019 2:57 PM LEGAL SERVICES PROFESSIONAL Height 167.6 cm (5' 6 ) 08/28/2019 2:57 PM LEGAL SERVICES PROFESSIONAL Body Mass Index 31.88 08/28/2019 2:57 PM LEGAL SERVICES PROFESSIONAL Plan of Treatment Health Maintenance Due Date [...] (1 - 1-dose 75+ series) 2036 Insurance [facility] [employer]/TRUE BLUE PPO Care Teams Classified Advertising Clerk Relationship Specialty Start Date End Date Praful Brandt MD [address] [place] [address] PCP - General Internal Medicine 05/31/19
--- OUTSIDE RECORDS SUMMARY | 2024-12-10 04:10 | XMS_ITS | Clinical Summary ---
Author Organization [facility] Address [address] [place] [address] Care Team Providers Care Green Meat Grader Name Role Phone Praful Brandt MD Primary Care Provider [phone] Praful Brandt MD Unavailable Source Comments [facility],non-owned Affiliates and Associated Physician Practices is amultiple site organization consisting of ambulatory clinics and hospital sitesin [place], [place], [place] and [place]. This disclosure is being madepursuant to the Care Everywhere program and may not contain all information available regarding this patient. Last updated 18.[facility] Allergies No known active allergies Medications * [...] 11/20/2020 Assessment & Plan (11/20/2020 2:38 PM POLISHER DIAL): - Premalignant potential discussed - Cryotherapy performed today x1 lesion (see procedure note) - Wound care reviewed, post-cryo handout given - Sun protection reviewed Lentigines 11/20/2020 Assessment & Plan (11/20/2020 2:38 PM POLISHER DIAL): - Benign, patient reassured - Skin cancer, sun protection, and photoaging discussed - Sunscreen handout provided Family history of malignant melanoma of skin Assessment & Plan (11/20/2020 2:38 PM POLISHER DIAL): - Educated patient about increased risk for developing melanoma - Counseled on importance of daily sun protection - Reviewed ABCDEs of melanoma - Annual FBSE recommended Multiple benign melanocytic nevi of upper extremity, lower extremity, and trunk 11/20/2020 Assessment & Plan (11/20/2020 2:38 PM POLISHER DIAL): - No atypical or concerning moles on [...] Comments Blood Pressure 124/82 11/04/2015 9:16 AM POLISHER DIAL Pulse 66 11/04/2015 9:16 AM POLISHER DIAL Temperature 36.7 C (98.1 F) 11/04/2015 9:16 AM POLISHER DIAL Respiratory Rate 20 11/04/2015 9:16 AM POLISHER DIAL Oxygen Saturation 96% 11/04/2015 9:16 AM POLISHER DIAL Inhaled Oxygen Concentration - - Weight 102.1 kg (225 lb) 11/04/2015 9:16 AM POLISHER DIAL Height 167.6 cm (5' 6 ) 11/04/2015 9:16 AM POLISHER DIAL Body Mass Index 36.32 11/04/2015 9:16 AM POLISHER DIAL Plan of Treatment Health Maintenance Due Date [...] age to complete this topic Care Teams Green Meat Grader Relationship Specialty Start Date End Date Praful Brandt MD [address] [place] [address] PCP - General 07/25/19 Praful Brandt MD [address] [place] [address] Internal Medicine 07/25/19
--- OUTSIDE RECORDS SUMMARY | 2024-12-10 04:10 | XMS_ITS | Patient Health Summary ---
Author Organization [facility] Address [address] [place] [address] Care Team Providers Care Compensation Agent Name Role Phone Praful Brandt MD Primary Care Provider [phone] Praful Brandt MD Unavailable Note from [facility] [place],non-owned Affiliates and Associated Physician Practices is amultiple site organization consisting of ambulatory clinics and hospital sitesin [place], [place], [place] and [place]. This disclosure is being madepursuant to the Care Everywhere program and may not contain all information available regarding this patient. Last updated 18.[facility] Allergies No known active allergies Medications * [...] Comments Blood Pressure 124/82 11/04/2015 9:16 AM TREE AND SHRUB TECHNICIAN Pulse 66 11/04/2015 9:16 AM TREE AND SHRUB TECHNICIAN Temperature 36.7 C (98.1 F) 11/04/2015 9:16 AM TREE AND SHRUB TECHNICIAN Respiratory Rate 20 11/04/2015 9:16 AM TREE AND SHRUB TECHNICIAN Oxygen Saturation 96% 11/04/2015 9:16 AM TREE AND SHRUB TECHNICIAN Inhaled Oxygen Concentration - - Weight 102.1 kg (225 lb) 11/04/2015 9:16 AM TREE AND SHRUB TECHNICIAN Height 167.6 cm (5' 6 ) 11/04/2015 9:16 AM TREE AND SHRUB TECHNICIAN Body Mass Index 36.32 11/04/2015 9:16 AM TREE AND SHRUB TECHNICIAN Procedures * IN DESTROY PREMALIG LESION, 1ST LESION(Performed 11/22/2020) Performed for Actinic keratosis * COMPLETE PFT W/WO BRONCHODILATOR(Performed 11/12/2015) * BLOOD GASES ART - PFT(Performed 11/12/2015) * ECHO COMPLETE(Performed 11/12/2015) Results * IN DESTROY PREMALIG LESION, 1ST LESION (11/22/2020 4:49 PM TREE AND SHRUB TECHNICIAN) Narrative Garrett Bautista MD - 11/22/2020 4:49 PM TREE AND SHRUB TECHNICIAN Garrett Bautista MD 11/22/2020 4:49 PM 1 lesion cryo Garrett Bautista MD PROCEDURE/MINOR SURG ICAL ORDERABLES * COMPLETE PFT W/WO BRONCHODILATOR (11/12/2015 11:41 AM TREE AND SHRUB TECHNICIAN) Impressions [facility] - 11/12/2015 11:41 AM TREE AND SHRUB TECHNICIAN [facility] DEPARTMENT OF PULMONARY, CRITICAL CARE, AND SLEEP MEDICINE PULMONARY FUNCTION TESTS [facility] [place] 11/17/2015 INTERPRETATION SPIROMETRY: Forced vital capacity is [...] of Pulmonary, Critical Care, & Sleep Medicine [facility] I have reviewed this study and agree with the interpretation by Dr. Morrison. Dylan Fuentes M.D. Laborer Wrecking And Salvaging of Internal Medicine Division of Pulmonary, Critical Care and Sleep Medicine [facility] Narrative Procedure Note Provider, MD Kendall - 03/31/2018 IMPRESSION [facility] DEPARTMENT OF PULMONARY, CRITICAL CARE, AND SLEEP MEDICINE PULMONARY FUNCTION TESTS [facility] 11/17/2015 INTERPRETATION SPIROMETRY: Forced vital capacity is [...] of Pulmonary, Critical Care, & Sleep Medicine [facility] I have reviewed this study and agree with the interpretation by Dr. Morrison. Dylan Fuentes M.D. Lab[employer]recking [employer] Salvaging of Internal Medicine Division of Pulmonary, Critical Care and Sleep Medicine [employer] Quan Camarena MD RESPIRATORY THE RAPY ORDERABLES [facility] * (ABNORMAL) BLOOD GASES ART - PFT (11/12/2015 10:24 AM TREE AND SHRUB TECHNICIAN) pH Arterial 7.41 7.35 - 7.45 [facility] pCO2 Arterial 37 35 - 45 mmHg [facility] pO2 Arterial 83 77 - 101 mmHg [facility] HCO3 Arterial 23.0 22.0 - 26.0 mmol/L [facility] TCO2 Arterial 24.1(L) 25.0 - 29.0 mmol/L [facility] Base Excess Arterial -0.8 -2.0 - 2.0 mmol/L [facility] Hemoglobin Arterial 13.2 12.0 - 15.5 g/dL [facility] Oxyhemoglobin Arterial 96.4 95.0 - 100.0 % [facility] Carboxyhemoglobin 1.5 0.0 - 3.0 % [facility] Methemoglobin 0.0 0.0 - 2.0 % [facility] FI O2 Arterial 21.0 % [facility] Blood specimen (specimen) ARTERY SPECIMEN / Unknown 11/12/2015 10:24 AM TREE AND SHRUB TECHNICIAN 11/12/2015 10:52 AM TREE AND SHRUB TECHNICIAN Narrative [facility] - 11/12/2015 10:54 AM TREE AND SHRUB TECHNICIAN Room Air (21%)->Yes FiO2->21 Quan Camarena MD LAB - BLOOD GAS ES ORDERABLES [address] [phone] * ECHO W DOPPLER AND COLOR FLOW (11/12/2015 12:00 AM TREE AND SHRUB TECHNICIAN) Anatomical Region Laterality Modality Other 11/12/2015 Quan Camarena MD ECHOCARDIOGRAPH Y RADIANT Care Teams Compensation Agent Relationship Specialty Start Date End Date Praful Brandt MD [address] [place] [phone] PCP - General 07/25/19 Praful Brandt MD [address] [place] [address] Internal Medicine 07/25/19
--- OUTSIDE RECORDS SUMMARY | 2024-12-10 04:10 | XMS_ITS | Referral Summary ---
Author Organization [facility] Address [address] [place] [address] Care Team Providers Care Data Science And Iot Manager Name Role Phone Praful Brandt MD Primary Care Provider [phone] Praful Brandt MD Unavailable Source Comments [facility],non-owned Affiliates and Associated Physician Practices is amultiple site organization consisting of ambulatory clinics and hospital sitesin [place], [place], [place] and [place]. This disclosure is being madepursuant to the Care Everywhere program and may not contain all information available regarding this patient. Last updated 18.[facility] Allergies No known active allergies Medications * [...] 11/20/2020 Assessment & Plan (11/20/2020 2:38 PM PROCESS OPERATOR): - Premalignant potential discussed - Cryotherapy performed today x1 lesion (see procedure note) - Wound care reviewed, post-cryo handout given - Sun protection reviewed Lentigines 11/20/2020 Assessment & Plan (11/20/2020 2:38 PM PROCESS OPERATOR): - Benign, patient reassured - Skin cancer, sun protection, and photoaging discussed - Sunscreen handout provided Family history of malignant melanoma of skin Assessment & Plan (11/20/2020 2:38 PM PROCESS OPERATOR): - Educated patient about increased risk for developing melanoma - Counseled on importance of daily sun protection - Reviewed ABCDEs of melanoma - Annual FBSE recommended Multiple benign melanocytic nevi of upper extremity, lower extremity, and trunk 11/20/2020 Assessment & Plan (11/20/2020 2:38 PM PROCESS OPERATOR): - No atypical or concerning moles on [...] Comments Blood Pressure 124/82 11/04/2015 9:16 AM PROCESS OPERATOR Pulse 66 11/04/2015 9:16 AM PROCESS OPERATOR Temperature 36.7 C (98.1 F) 11/04/2015 9:16 AM PROCESS OPERATOR Respiratory Rate 20 11/04/2015 9:16 AM PROCESS OPERATOR Oxygen Saturation 96% 11/04/2015 9:16 AM PROCESS OPERATOR Inhaled Oxygen Concentration - - Weight 102.1 kg (225 lb) 11/04/2015 9:16 AM PROCESS OPERATOR Height 167.6 cm (5' 6 ) 11/04/2015 9:16 AM PROCESS OPERATOR Body Mass Index 36.32 11/04/2015 9:16 AM PROCESS OPERATOR Plan of Treatment Not on file Care Teams Data Science And Iot Manager Relationship Specialty Start Date End Date Praful Brandt MD [address] [place] [phone] PCP - General 07/25/19 Praful Brandt MD [address] [place] [phone] Internal Medicine 07/25/19
== END 2024-12-10 02:19 | disposition left against medical advice (07) ==
PROVIDERS: Emergency Provider Emergency Medicine; PCP Physician Assistant
DX: R07.89 Other chest pain (principal)
CPT/HCPCS: 36415; 71046; 80053; 83690; 84484; 85610; 85730; 93005; 99199

== ENCOUNTER 2024-12-28 17:02 | Emergency (ER) | payer OTHER, SELFPAY ==
[2024-12-28 17:24] VITALS: BP 144/83; PULSE 76; RESP 16; TEMP 37.2; O2SAT 99
[2024-12-28] MEDS: LIDOCAINE 1% LOCAL INJ 2 ML AMPUL INFILTRATE (17:28)
[2024-12-28] MEDS: TETANUS,DIPHTHERIA,AC PERTUSSIS ADULT (0.5 ML) BOOSTRIX IM (17:28)
--- NOTE | 2024-12-28 17:37 | ED.ANIMALBIT ---
HPI - Animal Bite General Chief Complaint: Animal Bite Stated Complaint: dog bite/cut right hand Time Seen by Provider: 12/28/24 17:09 Source: patient Mode of arrival: ambulatory Limitations: no limitations History of Present Illness HPI narrative: Bev is a [id number] patient presenting to the clinic today with complaints of a dog bite/laceration in between the webbing of her thumb and 2nd finger of her right hand. Bleeding is controlled. This happened approximately 30 minutes prior to arrival. Tetanus shot is unknown. Related Data Home Medications ?Medication ?Instructions ?Recorded ?Confirmed ?Last Taken ?Type famotidine 20 mg tablet 20 mg PO DAILY 11/26/22 12/28/24 Unknown History metoprolol succinate 25 mg 25 mg PO DAILY 11/26/22 12/28/24 Unknown History tablet,extended release 24 hr nabumetone 500 mg tablet 500 mg PO DAILY 11/26/22 12/28/24 Unknown History norethindrone acetate 5 mg tablet 5 mg PO DAILY 11/26/22 12/28/24 Unknown History ergocalciferol (vitamin D2) 1,250 1,250 mcg PO WEEKLY 12/28/24 12/28/24 Unknown History mcg (50,000 unit) capsule sertraline 50 mg tablet 50 mg PO Q24H 12/28/24 12/28/24 Unknown History Allergies Allergy/AdvReac Type Severity Reaction Status Date / Time No Known Allergies Allergy Unknown Verified 12/28/24 17:06 Review of Systems Review of Systems: Pertinent positives per HPI. Patient denies any fever, chills, rash, headache, visual changes, dizziness, cough, runny nose, sore throat, shortness of breath, chest pain, palpitations, nausea, vomiting, diarrhea, constipation, abdominal pain, or any urinary issues. PMFSH Comments At the time of my signature, I reviewed and agree with the nursing past medical, surgical, social, and family history. There is no relevant family history pertinent to the patient complaint. Exam Narrative: General: Well-developed, well nourished, in no apparent distress Head: Normocephalic, atraumatic. Cardio: Regular rate and rhythm, s1 and s2 normal, no murmur appreciated. Resp: Clear to auscultation bilaterally, no rhonchi, rales, wheezing or rubs. Integumentary: [place], warm, and dry, gaping 1 cm laceration in between the webbing of the right thumb and 2nd finger. Bleeding is controlled Course Course Emergency Course: Portions of this record may have been created with voice recognition software. Level of Care: Express Care Visit Vital Signs Vital signs: Vital Signs Temperature 37.2 C 12/28/24 17:24 Pulse Rate 76 12/28/24 17:24 Respiratory Rate 16 12/28/24 17:24 Blood Pressure 144/83 H 12/28/24 17:24 Pulse Oximetry 99 12/28/24 17:24 Oxygen Delivery Room Air 12/28/24 17:24 Temperature 37.2 C 12/28/24 17:24 Pulse Rate 76 12/28/24 17:24 Respiratory Rate 16 12/28/24 17:24 Blood Pressure 144/83 H 12/28/24 17:24 Pulse Oximetry 99 12/28/24 17:24 Oxygen Delivery Room Air 12/28/24 17:24 Vital signs reviewed Procedures Laceration Laceration 1: Date: 12/28/24 Site: hand Side (If applicable): right Size (cm): 1 Description: linear and contaminated Depth: simple, single layer Local Anesthetic: lidocaine 1% Amount of anesthesia used (mL): 0.5 Pre-repair: wound explored, irrigated and irrigated extensively ====== Skin Level ====== Skin layer closed with: nylon Size (cm): 5-0 Number of sutures: 1 Technique: simple, interrupted ====== Subcutaneous Layer ====== ====== Muscle Layer ====== ====== Tendon Layer ====== Dressing: Verbal consent obtained for laceration repair. Risk and benefits explained and patient voiced understanding. Area was cleansed with sterile normal saline, antiseptic wound wash, and Betadine. A 27 gauge needle was then used to instill (0.5) ml of 1% lidocaine without epi into the wound edges. Area was prepped and draped using sterile technique. A 5-0 suture on a p needle was used to place (1) interrupted sutures bringing the wound edges together loosely- well approximated. Patient tolerated procedure well. Sterile dressing applied. MDM - Animal Bite MDM Narrative Medical decision making narrative: At the time of visit patient is resting comfortably on the exam table. Patient appears to be nontoxic. Medications: 1% Lidocaine 0.5 mL injected into the wound edges, Tdap 0.5 mL IM given by nursing staff Procedures: Laceration repair was performed in the clinic today. Wound was irrigated extensively, sterile normal saline, antiseptic wound wash, and Betadine was used. One interrupted suture was used bringing the wound edges loosely together allowing for drainage if necessary. Plan: Patient has an animal bite laceration to the right hand webbing with moderate gaping. One interrupted suture was placed after extensive irrigation and cleaning. Will place patient on Augmentin to cover for secondary infection. Supportive measures were discussed with the patient and they voiced understanding discharge instructions and agrees to treatment plan. Return precautions reviewed Differential Diagnosis Differential diagnosis: Likely bite by animal, dog bite and other (Laceration) Discharge Plan Discharge Clinical Impression: Laceration Dog bite Qualifiers: Encounter type: initial encounter Qualified Code(s): W54.0XXA - Bitten by dog, initial encounter Patient Disposition: Home, Self-Care Condition: Stable Instructions: Antibiotic Form, Animal Bite (ED), Laceration (ED) Additional Instructions: Tdap given in the clinic today One interrupted suture placed bringing wound edges well approximate and allowing for drainage if needed Take Augmentin as prescribed Do not soak the wound or submerge in dirty water Leave bandage on for 24 hours then may remove and apply band aide covering as needed. Keep wound clean and dry Skin sutures out in 7 days. Watch for signs and symptoms of infection- redness, streaking, swelling, purulent discharge, or increase in pain. Follow up with your PCP for suture removal or return to the Express care. Patient Language: Kinyarwanda Prescriptions: New amoxicillin-pot clavulanate 875-125 mg tablet 1 tablet PO Q12H 7 Days Qty: 14 0RF No Action famotidine 20 mg tablet 20 mg PO DAILY norethindrone acetate 5 mg tablet 5 mg PO DAILY metoprolol succinate 25 mg tablet extended release 24 hr 25 mg PO DAILY nabumetone 500 mg tablet 500 mg PO DAILY ergocalciferol (vitamin D2) 1,250 mcg (50,000 unit) capsule 1,250 mcg PO WEEKLY sertraline 50 mg tablet 50 mg PO Q24H Follow-up/Referrals: Adrian,JESSICA Marcus [Primary Care Provider] - Time of Disposition: 17:34 Quality NIHSS Nursing Documentation ED NIHSS nursing documentation: reviewed/agree
== END 2024-12-28 17:40 | disposition home or self-care (01) ==
PROVIDERS: Emergency Provider Nurse Practitioner Family; PCP Physician Assistant
DX: S61.451A Open bite of right hand, initial encounter (principal); Z79.899 Other long term (current) drug therapy; Z23 Encounter for immunization; W54.0XXA Bitten by dog, initial encounter
CPT/HCPCS: 12001; 90471; 90715; 99213; G0463; J2003